=== PATIENT | male | born 1970 ===

== ENCOUNTER → 2024-03-08 07:26 | Outpatient (CLI) | payer OTHER ==
[2024-03-08 07:55] LABS: HEMOGLOBIN 15.3 g/dL (13-16.00); MEAN CELL VOLUME 84.9 fL (80.0-100.00); MEAN CORPUSCULAR HEMOGLOBIN 30.2 pg (27.00-32.0); MEAN CORPUSCULAR HGB CONC 35.5 g/dl (32.0-36.0); PLATELET COUNT 396 K/uL (150-450); RED BLOOD COUNT 5.06 M/uL (4.00-6.00); RED CELL DISTRIBUTION WIDTH 13.7 % (11.5-14.5)
[2024-03-08 09:18] LABS: URINE APPEARANCE Clear; URINE BILIRRUBIN Negative (NEGATIVE); URINE BLOOD Negative; URINE COLOR Yellow; URINE GLUCOSE Negative (NEGATIVE); URINE KETONE Negative (NEGATIVE); URINE LEUKOCYTE Negative; URINE NITRATE Negative; URINE PROTEIN Negative (NEGATIVE); URINE UROBILINOGEN 0.2 E.U./dl
[2024-03-08 09:21] LABS: URINE BACTERIA 7.5 uL (0.0-1933); URINE WBC 2.3 uL (0.0-23.2)
[2024-03-08 09:26] LABS: URINE EPITHELIAL CELLS 1.3 uL (0.0-38.8); URINE RBC 1.5 uL (0.0-20.8)
[2024-03-08 09:39] LABS: ALBUMIN 3.9 gm/dL (3.4-5.0); BILIRUBIN TOTAL 0.44 mg/dL (0.3-1.2); CALCIUM 9.3 mg/dL (8.5-10.1); CHOL HDL RATIO 3.4 (0-5.0); CREATININE SERUM 0.92 mg/dL (0.70-1.30); GFR 86.73; GLOBULINA 3.4 G/DL (2.4-3.5); POTASSIUM 3.91 mEq/L (3.5-5.1); PROSTATIC SPECIFIC ANTIGEN 3.81 NG/ML (0.010-4.00); TOTAL PROTEIN 7.3 gm/dL (6.4-8.2); TSH 2.1 uIU/mL (0.358-3.74)
[2024-03-08 10:21] LABS: ob NEGATIVE (NEGATIVE)
== END | disposition home or self-care (01) ==
LOC: LAB 07:26
DX: M79.631 Pain in right forearm (principal); M79.601 Pain in right arm; S46.201A Unspecified injury of muscle, fascia and tendon of other parts of biceps, right arm, initial encounter; S56.911A Strain of unspecified muscles, fascia and tendons at forearm level, right arm, initial encounter; E78.5 Hyperlipidemia, unspecified; I11.9 Hypertensive heart disease without heart failure; R80.1 Persistent proteinuria, unspecified; Z12.5 Encounter for screening for malignant neoplasm of prostate; Z12.11 Encounter for screening for malignant neoplasm of colon; Z13.1 Encounter for screening for diabetes mellitus; Z13.228 Encounter for screening for other metabolic disorders; Z13.0 Encounter for screening for diseases of the blood and blood-forming organs and certain disorders involving the immune mechanism

== ENCOUNTER 2024-03-08 08:53 | Outpatient (CLI) | payer OTHER | END 2024-03-08 09:17 | disposition home or self-care (01) | LOC: MRI 08:53 | PROVIDERS: ATTEND General Practice | DX: M79.631 Pain in right forearm (principal); M79.601 Pain in right arm; S46.201A Unspecified injury of muscle, fascia and tendon of other parts of biceps, right arm, initial encounter; S56.911A Strain of unspecified muscles, fascia and tendons at forearm level, right arm, initial encounter; S59.911A Unspecified injury of right forearm, initial encounter; E78.5 Hyperlipidemia, unspecified; I11.9 Hypertensive heart disease without heart failure; R80.1 Persistent proteinuria, unspecified; Z12.5 Encounter for screening for malignant neoplasm of prostate; Z12.11 Encounter for screening for malignant neoplasm of colon; Z13.1 Encounter for screening for diabetes mellitus; Z13.220 Encounter for screening for lipoid disorders; Z13.0 Encounter for screening for diseases of the blood and blood-forming organs and certain disorders involving the immune mechanism | CPT/HCPCS: 73221 ==

== ENCOUNTER 2024-08-24 10:47 | Outpatient (CLI) | payer OTHER | END 2024-08-24 10:56 | disposition home or self-care (01) | LOC: MRI 10:47 | PROVIDERS: ATTEND General Practice | DX: M25.562 Pain in left knee (principal) | CPT/HCPCS: 72148; 73721 ==